=== PATIENT | male | born 1990 | race Caucasian/White ===

== ENCOUNTER 2019-08-28 09:00 | Emergency (ER) | payer SELFPAY ==
[~2019-08-28] VITALS: Ht 193 cm; Wt 106.6 kg
--- NOTE | 2019-08-28 10:14 | Diagnostic Imaging Report ---
TECHNIQUE: 3 views of the right foot HISTORY: ^LACERATION/CRUSH TO GREAT TOE ^[id number] ^[id number]. COMPARISON: None. IMPRESSION: No acute displaced fracture or dislocation. Joint spaces are within normal limits. Mild soft tissue irregularity at the first phalanx. Signed by: Feliz Galeano MD on 08/28/2019 10:10 AM
[2019-08-28] MEDS ORDERED: LIDOCAINE HCL 1% 2 ML AMP INJ ONE (10:15)
[2019-08-28] MEDS ORDERED: TETANUS/DIPHTHERIA TOX ADULT 0.5 ML SYR IM ONE (10:15)
--- NOTE | 2019-08-28 10:42 | Emergency Department Note ---
History of Present Illnes History of Present Illness Chief Complaint: Laceration History of Present Illness This is a 29 year old male HERE FOR LACERATION TO TOP OF RIGHT GREAT T OE YESTERDAY AT 3PM, STATES HE DROPPED A CHEMA HANDLE ON HIS TOE AND SPLIT IT OPEN. Historian: Patient Arrival Mode: Car Political Theory Professor Required: No Onset (how long ago): day(s) (YESTERDAY) Location: RIGHT GREAT TOE Quality: MILD PAIN Radiation: Reports non-radiation Severity: mild Onset quality: sudden Timing of current episode: constant Progression: unchanged Chronicity: new Context: Denies recent illness Relieving factors: none Exacerbating factors: none Associated symptoms: Reports denies other symptoms Past Medical/Family History Physician Review I have reviewed the patient's past medical and family history. Any updates have been documented here. Past Medical History Recent Fever: No Clinical Suspicion of Infectio: No New/Unexplained Change in Ment: No Past Medical History: None Past Surgical History: None Social History Smoking Cessation: Never Smoker Counseling Performed: No Alcohol Use: Occasional Any Illegal Drug Use: No TB Exposure/Symptoms: No Physically hurt or threatened: No Other Last Tetanus: OOD Review of Systems Review of Systems Constitutional: Reports no symptoms EENTM: Reports no symptoms Cardiovascular: Reports no symptoms Respiratory: Reports no symptoms Gastrointestinal: Reports no symptoms Genitourinary: Reports no symptoms Musculoskeletal: Reports as per HPI Integumentary: Reports no symptoms Neurological: Reports no symptoms Psychological: Reports no symptoms Endocrine: Reports no symptoms Hematological/Lymphatic: Reports no symptoms Physical Exam Related Data Allergies: Coded Allergies: No Known Allergies (Verified , 10/20/14) Triage Vital Signs Vital Signs Date Time Temp Pulse Resp B/P (MAP) Pulse Ox O2 Delivery O2 Flow Rate FiO2 08/28/19 09:12 98.4 64 16 140/87 99 Vital signs reviewed: Yes Physical Exam CONSTITUTIONAL Constitutional: Present well-developed, Present well-nourished HENT HENT: Present normocephalic, Present atraumatic, Present oropharynx clear/moist, Present nose normal HENT L/R: Present left ext ear normal, Present right ext ear normal EYES Eyes: Reports PERRL, Reports conjunctivae normal NECK Neck: Present ROM normal PULMONARY Pulmonary: Present effort normal, Present breath sounds normal CARDIOVASCULAR Cardiovascular: Present regular rhythm, Present heart sounds normal, Present capillary refill normal, Present normal rate GASTROINTESTINAL Abdominal: Present soft, Present nontender, Present bowel sounds normal GENITOURINARY Genitourinary: Present exam deferred SKIN Skin: Present warm, Present dry MUSCULOSKELETAL Musculoskeletal: Present other (2 CM LACERATION DORSUM OF RIGHT GREAT TOE OVERLYING DIP, GOOD ROM, N/V INTACT, GOOD CAP REFILL) NEUROLOGICAL Neurological: Present alert, Present oriented x 3, Present no gross motor or sensory deficits PSYCHOLOGICAL Psychological: Present mood/affect normal, Present judgement normal Results Imaging Imaging results reviewed: Yes Impressions Procedure: [id number] DX/FOOT RIGHT COMPLETE Exam Date: 08/28/19 Exam Time: 933 REPORT STATUS: Signed TECHNIQUE: 3 views of the right foot HISTORY: ^LACERATION/CRUSH TO GREAT TOE ^[id number] ^933. COMPARISON: None. IMPRESSION: No acute displaced fracture or dislocation. Joint spaces are within normal limits. Mild soft tissue irregularity at the first phalanx. Signed by: Feliz Galeano MD on 08/28/2019 10:10 AM Assessment & Plan Medical Decision Making MDM CHECK XRAY R/O OPEN FX Reassessment Reassessment >12 HRS FROM TIME OF INJURY - STERI-STRIP, ABX'S (BACTRIM/KEFLEX) Assessment & Plan Final Impression: (1) Laceration of toe Depart Disposition: HOME, SELF-CARE Last Vital Signs Date Time Temp Pulse Resp B/P (MAP) Pulse Ox O2 Delivery O2 Flow Rate FiO2 08/28/19 09:12 98.4 64 16 140/87 99 Home Meds No Active Prescriptions or Reported Meds Medications in the ED Tetanus/ Diphtheria Toxoids 0.5 ml ONCE ONCE IM ; Start 08/28/19 at 10:15; Stop 08/28/19 at 10:16; Status DC Lidocaine HCl 20 ml ONCE ONCE INJ ; Start 08/28/19 at 10:15; Stop 08/28/19 at 10:16; Status DC CONNIE HORAN MD Aug 28, 2019 10:42
[2019-08-28] MEDS ORDERED: LIDOCAINE HCL 1% LOCAL INJ 20 ML VIAL ONE (10:59)
== END 2019-08-28 11:14 | disposition home or self-care (01) ==
LOC: ER 09:00
DX: S91.111A Laceration without foreign body of right great toe without damage to nail, initial encounter (principal); W20.8XXA Other cause of strike by thrown, projected or falling object, initial encounter
CPT/HCPCS: 73630; 90471; 90714; 99282; J2001